=== PATIENT | female | born 1990 ===

== ENCOUNTER 2018-04-01 08:25 | Day surgery (SDC) | payer OTHER ==
[2018-04-01] MEDS ORDERED: CODE1TAB37 PO (13:18)
[2018-04-01] MEDS ORDERED: DOXYCYCLINE HY100 MG PO (13:18)
== END 2018-04-01 20:30 | disposition home or self-care (01) ==
LOC: CIR.AMB 08:25
DX: O02.1 Missed abortion (principal)